=== PATIENT | female | born 2005 | race Caucasian/White ===

== ENCOUNTER 2024-05-10 13:38 | Emergency (ER) | payer BC, SELFPAY ==
[2024-05-10 13:38] VITALS: BP 135/78; PULSE 100; RESP 18; TEMP 37.1; O2SAT 100
--- NOTE | 2024-05-10 14:37 | ED.GENADULT ---
HPI - General Adult General Chief complaint: Eye Problems Stated complaint: right eye pain Source: patient Mode of arrival: ambulatory Limitations: no limitations History of Present Illness HPI narrative: Patient presents for evaluation of right eye pain. Symptom onset around 10:00 this morning after she was putting in her contacts. She has since removed them. She describes the pain as stinging and rates it 5/10 in severity. She has noted tearing without any other drainage. She has experienced some blurred vision which she attributes to tearing. Denies other visual disturbance. She had similar symptoms in the past with a corneal abrasion. Related Data Home Medications Medication Instructions Recorded Confirmed metoprolol succinate 25 mg 25 mg PO DAILY 05/10/24 05/10/24 tablet,extended release 24 hr Allergies Allergy/AdvReac Type Severity Reaction Status Date / Time No Known Allergies Allergy Verified 05/10/24 13:52 Review of Systems Review of Systems: CONSTITUTIONAL: Denies fever, chills, or sweats. EYES: Reports right eye pain, redness, tearing and blurred vision ENT: Denies rhinorrhea, congestion, sore throat, or otalgia. CARDIOVASCULAR: Denies chest pain, palpitations, or edema. RESPIRATORY: Denies cough or dyspnea. GASTROINTESTINAL: Denies abdominal pain, nausea, vomiting, or diarrhea. GENITOURINARY: Denies dysuria or hematuria. SKIN: Denies rash or itching. MUSCULOSKELETAL: Denies back pain, joint pain, or myalgia. NEUROLOGIC: Denies headache, numbness, dizziness, or weakness. PSYCHIATRIC: Denies anxiety or depression. [facility] Past Medical History Medical History Tachycardia Surgical History Surgical History [place] teeth removed Family History Family History Father Diabetes mellitus Mother Depression Grandparent Breast cancer Diabetes mellitus Hypertension Heart disease Social History Social History Smoking status: Never smoker Alcohol intake: never Substance use: never Lack of Transportation: No Lack of Food: Never True Current Housing: I Have Housing Concerned About Future Housing: No Difficulty Paying Gas/Electric Bills: No Difficulty Paying for Meds: No Currently Unemployed: No Education: High School Diploma/GED Difficulty w/ Childcare or Family Care: No Exam Narrative: GENERAL: Well-appearing, well-nourished, and in no acute distress. HEAD: Normocephalic, atraumatic. EYES: PERRLA and EOMI. Right conjunctival injection with associated tearing. There is a small area of dye uptake noted at 10:00 a.m. position of the right eye when evaluated with a Wood's lamp and fluorescein stain ENT: Nares clear, no rhinorrhea or epistaxis. Mucous membranes moist. Oropharynx without tonsillar hypertrophy exudate or other lesions. Bilateral TMs pearly gavin nonbulging NECK: Supple. No adenopathy or masses. No carotid bruits or JVD CHEST: Clear to auscultation. No respiratory distress. No wheezes rales or rhonchi HEART: Regular rate and rhythm. No murmur heard. Normal peripheral pulses. ABDOMEN: Soft, nontender, nondistended, normal active bowel sounds. EXTREMITIES: Normal range of motion. No edema. SKIN: Warm, dry, no rash. NEURO: No focal deficits. Alert and oriented x3. PSYCH: Normal mood and affect. Course Course Emergency Course: This is a 18-year-old female who presented for evaluation of right eye irritation, pain and tearing. She has corneal abrasion on exam. Will treat with ofloxacin due to contact lens use. Keep contacts out and use glasses until abx therapy completed. Follow up with primary provider. Go to the ER for visual disturbance. Pt in agreement with plan of care. Level of Care: Express Care V
[2024-05-10] MEDS: FLUORESCEIN SOD 1 MG/STRIP EACH EYE (15:15)
== END 2024-05-10 14:55 | disposition home or self-care (01) ==
PROVIDERS: Emergency Provider Nurse Practitioner; PCP Pediatrics
DX: S05.01XA Injury of conjunctiva and corneal abrasion without foreign body, right eye, initial encounter (principal); X58.XXXA Exposure to other specified factors, initial encounter
CPT/HCPCS: 99213; A9270; G0463